=== PATIENT | male | born 2000 | race Two or more races ===

== ENCOUNTER 2019-04-07 21:06 | Emergency (ER) | payer OTHER ==
[~2019-04-07] VITALS: Ht 180.3 cm; Wt 90.3 kg
[2019-04-07 21:13] VITALS: Ht 180.3 cm; Wt 90.3 kg
[2019-04-07 23:14] LABS: AMPHETAMINE QUAL UR NONE DETECTED (See below)
[2019-04-07 23:50] VITALS: BP 140/97
== END 2019-04-07 23:50 | disposition home or self-care (01) ==
LOC: ED 21:06
PROVIDERS: Emergency Medicine
DX: F41.9 Anxiety disorder, unspecified (principal); R00.2 Palpitations; R11.10 Vomiting, unspecified; R07.89 Other chest pain; R06.02 Shortness of breath